=== PATIENT | female | born 1945 | race Caucasian/White ===

== ENCOUNTER → 2017-01-19 | Outpatient (CLI) | payer OTHER ==
[~2017-01-19] MED LIST: ASPIRIN EC81 M1 PO; ASPIRIN PO; CALCIUM 500 + D1 TAB PO; CARVEDILOL3.125 MG PO; GLYCOPYRROLATE2 MG PO; LIPITOR PO; LISINOPRIL20 MG PO; MAGNESIUM; NITROGLYGERIN0.4 MG SL; VIBRAMYCIN100 M1 PO; ZEGERID40 MG/PKT PO; ZITHROMAX PO; [UNRECOGNIZED DRUG - OTHER]
--- NOTE | ~2017-01-19 | MY29 ---
[facility] A Service of [facility] RADIOLOGY TEXT RESULTS PATIENT: BIJU CRANE LOCATION: [facility] : 47 UNIT #: [id number] AGE: [address]: Nicky Fan MD SEX: F ORDER DR: [id number] [facility] [place] [address] [place], [place] [address] [id number] O MR#: [id number] Acc #: [id number] NAME: BIJU CRANE : 1945 SEX: F STUDY DATE/TIME: 01/19/2017 14:59 UNIT: [facility] ROOM: STUDY DESCRIPTION: MY ALCON SCREENING W/ CAD BILAT Attending Physician: Nicky Fan M.D. Referring Physician: Nicky Fan M.D. Ordering Physician: Nicky Fan M.D. Primary Care Physician: Nicky Fan M.D. MEDICAL IMAGING REPORT This report is preliminary unless electronic signature is present EXAM Digital screening mammogram, 01/19/2017. HISTORY A 71-year-old woman positive family history, aunt postmenopausal. Annual screening COMPARISON STUDIES Mammograms date to 10/02/2005 with most recent screening 07/22/2014 FINDINGS Digital imaging of each breast was completed utilizing a two-view examination of each breast in craniocaudal and mediolateral-oblique projections. Review and interpretation of digital mammograms include a second review in conjunction with FDA-approved CAD device. There is a normal parenchymal presentation bilaterally consistent with the patient's age. There are no breast masses imaged and no parenchymal asymmetry is visualized. There are no suspicious microcalcifications and I see no focal architectural disturbance. IMPRESSION Negative screening digital mammogram. One-year followup recommended. Patients over the age of 40 are entered into a reminder system with target due date for the next mammogram. A result letter will also be sent to the patient. BIRADS: 1 Negative Dictated by... Luis Armando Vail M.D. [facility] A Service of [facility] RADIOLOGY TEXT RESULTS PATIENT: BIJU CRANE LOCATION: [facility] : 47 UNIT #: [id number] AGE: [address]: Nicky Fan MD SEX: F ORDER DR: THIS IS AN ELECTRONICALLY VERIFIED REPORT Luis Armando Vail M.D. at 01/22/2017 7:58 AM Shyla TD: 01/19/2017 19:57 JOB #: [id number] MEDICAL IMAGING REPORT Page 1 of 1 COPY
== END | disposition home or self-care (01) ==
LOC: CWCC 14:35
DX: Z12.31 Encounter for screening mammogram for malignant neoplasm of breast (principal); Z80.3 Family history of malignant neoplasm of breast
CPT/HCPCS: G0202